=== PATIENT | female | born 1960 | race Two or more races ===

== ENCOUNTER 2022-04-25 00:52 | Emergency (ER) | payer MEDICAID ==
[~2022-04-25] VITALS: Ht 160 cm; Wt 70.5 kg
[2022-04-25 02:40] VITALS: BP 136/81
[2022-04-25] MEDS ORDERED: CYCL-837 PO (03:29)
[2022-04-25] MEDS ORDERED: IBUP800T27 PO (03:29)
== END 2022-04-25 03:37 | disposition home or self-care (01) ==
LOC: ER 00:55
DX: S16.1XXA Strain of muscle, fascia and tendon at neck level, initial encounter (principal); R51.9 Headache, unspecified; V43.52XA Car driver injured in collision with other type car in traffic accident, initial encounter; Y93.89 Activity, other specified; Y92.488 Other paved roadways as the place of occurrence of the external cause; Y99.8 Other external cause status
CPT/HCPCS: 70450; 72125

== ENCOUNTER 2023-07-27 01:44 | Inpatient (IN) | payer MEDICAID ==
[~2023-07-27] VITALS: Ht 160 cm; Wt 68.0 kg
[~2023-07-27 01:44] MED LIST: CYCL-837 PO; IBUP-1456 PO
[2023-07-27 02:25] LABS: Chloride 107 mmol/L (98-107); Potassium 3.7 mmol/L (3.5-5.1); Sodium 135 mmol/L (136-145)
[2023-07-27 02:26] LABS: Anion Gap 7 (5-15); Basophils # (auto) 0 10 ^3/uL (0-0.2); Basophils % (auto) 0.2 % (0.0-2.0); Carbon Dioxide 21 mmol/L (20-30); Eosinophils # (auto) 0 10 ^3/uL (0-0.8); Eosinophils % (auto) 0.3 % (0.0-7.0); Hematocrit 42.6 % (36.0-46.0); Hemoglobin 14.3 g/dL (12.2-16.2); Lymphocytes # (auto) 1.4 10 ^3/uL (0.4-5.4); Lymphocytes % (auto) 12.1 % (10.0-50.0); Mean Corpuscular Hemoglobin 28.8 pg (28.0-32.0); Mean Corpuscular Hgb Conc. 33.7 g/dL (32.0-36.0); Mean Corpuscular Volume 85.6 fL (80.0-100.0); Monocytes # (auto) 0.5 10 ^3/uL (0-1.3); Monocytes % (auto) 4.3 % (0.0-12.0); Neutrophils # (auto) 9.8 10 ^3/uL (1.6-8.6); Neutrophils % (auto) 83.1 % (37.0-80.0); Nucleated Red Blood Cells % 0.1 %; Red Blood Cells 4.97 10^6/uL (4.0-5.20); Red Cell Distribution Width 14.1 % (11.8-14.3); White Blood Cell 11.8 10^3/uL (4.4-10.8)
[2023-07-27 02:27] LABS: Calcium 8.7 mg/dL (8.5-10.1)
[2023-07-27 02:32] LABS: BUN/Creatinine Ratio 13.9 (10.0-20.0); Blood Urea Nitrogen 10 mg/dL (9-23); Glucose 269 mg/dL (74-106)
[2023-07-27] MEDS: SODIUM CHLORIDE 0.9% 1,000 ML IV ONE (04:10)
[2023-07-27 06:58] VITALS: BP 134/76; PULSE 78; RESP 20; TEMP 98.3; O2SAT 97
[2023-07-27] MEDS ORDERED: MORPHINE SULFATE INJ 2 MG/ml SYRG IV PRN (09:30)
[2023-07-27] MEDS ORDERED: ONDANSETRON HCL 4 MG/2 ML VIAL IV PRN (09:30)
[2023-07-27] MEDS ORDERED: DEXTROSE (50%) 50ML SYRG IV PRN (09:30)
[2023-07-27] MEDS ORDERED: DOCUSATE SOD 100 MG CAP PO PRN (09:30)
[2023-07-27] MEDS: SODIUM CHLORIDE 0.9% 1,000 ML IV SCH (09:45)
[2023-07-27] MEDS: InsuLIN REG 1unit/0.01ml Soln (100units/ml) SC SCH (11:30)
[2023-07-27] MEDS: ACCU-CHEK COMFORT CURVE STRIP VI SCH (11:30)
[2023-07-27] MEDS ORDERED: InsuLIN REG 1unit/0.01ml Soln (100units/ml) SC SCH (22:00)
== END 2023-07-27 16:35 | disposition left against medical advice (07) | DRG 48 ==
LOC: ER 01:44 → EDBD 01:44 → TELE 12:41
PROVIDERS: ADMIT Nurse Practitioner Family; ATTEND Nurse Practitioner Family
DX: G90.8 Other disorders of autonomic nervous system (principal); I95.9 Hypotension, unspecified; D72.829 Elevated white blood cell count, unspecified; E11.65 Type 2 diabetes mellitus with hyperglycemia; F17.210 Nicotine dependence, cigarettes, uncomplicated; F15.10 Other stimulant abuse, uncomplicated; Z53.29 Procedure and treatment not carried out because of patient's decision for other reasons; K21.9 Gastro-esophageal reflux disease without esophagitis; Z83.3 Family history of diabetes mellitus; Z79.4 Long term (current) use of insulin; Z90.49 Acquired absence of other specified parts of digestive tract; W18.39XA Other fall on same level, initial encounter; Y93.89 Activity, other specified; Y92.89 Other specified places as the place of occurrence of the external cause; Y99.8 Other external cause status
CPT/HCPCS: 36415; 70450; 71046; 80048; 82962; 83036; 84443; 84484; 85025; 93005; G0378

== ENCOUNTER 2024-06-01 12:06 | Inpatient (IN) | payer MEDICAID ==
[~2024-06-01] VITALS: Ht 160 cm; Wt 71.3 kg
--- NOTE | 2024-06-01 12:55 | ED.PDOC ---
GI ASSESSMENT HPI Comments 63Y F with PMHx DM and cholecystectomy presents to ED for chief complaint diarrhea x5days with vomiting x1day and weakness. Pt states she has never experienced this before. Pt denies chest pain, SOB, abd pain, fever, and urinary symptoms. Pt has an upcoming appt with GI Dr. Lundberg. No other symptoms reported. Pt is currently taking insulin for DM. Chief Complaint: Diarrhea Time Seen by MD: 12:40 Primary Care Provider: CARYL Kenny Notes: Nurses Notes, Medications, Allergies Allergies: Coded Allergies: NO KNOWN ALLERGIES (Unverified , 10/22/18) Home Meds Active Scripts Ibuprofen (Ibuprofen) 800 Mg Tab, 1 TAB PO TID PRN, #30 TAB 0 Refills Prov:DIGNA AGUIRRE 04/25/22 Cyclobenzaprine Hcl (Cyclobenzaprine Hcl) 5 Mg Tab, 1 TAB PO QPM PRN, #14 TAB 0 Refills Prov:DIGNA AGUIRRE 04/25/22 Information Source: Patient Mode of Arrival: Ambulatory Timing: Days Duration: Since onset Prehospital treatment: None Quality: None Vomitus: Watery Stool: Loose, Watery Severity: Moderate Recent: None Recent Hx of: None Pain Location: None Modifying Factors: Nothing Associated sign and symptoms: Nausea, Vomiting, Diarrhea, Other Past Medical History PAST MEDICAL HISTORY: DM, GERD Surgical History: Cholecystectomy DISH WASHER History: No Pertinent DISH WASHER History Family History Family History: Family hx of DM Social History Smoker: Cigarettes Alcohol: Denies ETOH Use Drugs: Methamphetamine Lives In: Home Constitutional: reports: weakness; denies: chills, diaphoresis, fatigue, fever, malaise, sweats, others EENTM: denies: blurred vision, double vision, ear bleeding, ear discharge, ear drainage, ear pain, ear ringing, eye pain, eye redness, hearing loss, mouth pain, mouth swelling, nasal discharge, nose bleeding, nose congestion, nose pain, photophobia, tearing, throat pain, throat swelling, voice changes, others Respiratory: denies: cough, hemoptysis, orthopnea, SOB at rest, shortness of breath, SOB with excertion, stridor, wheezing, others Cardiovascular: denies: chest pain, dizzy spells, diaphoresis, Dyspnea on exertion, edema, irregular heart beat, left arm pain, lightheadedness, palpitations, PND, syncope, others Gastrointestinal: reports: diarrhea, nausea, vomiting; denies: abdomen distended, abdominal pain, blood streaked bowels, constipated, dysphagia, difficulty swallowing, hematemesis, melena, poor appetite, poor fluid intake, rectal bleeding, rectal pain, others Genitourinary: denies: abnormal vagina bleeding, burning, dyspareunia, dysuria, flank pain, frequency, hematuria, incontinence, pain, , vagina discharge, urgency, others Neurological: denies: dizziness, fainting, headache, left sided numbness, left sided weakness, numbness, paresthesia, pre-existing deficit, right sided numbness, right sided weakness, seizure, speech problems, tingling, tremors, weakness, others Musculoskeletal: denies: back pain, gout, joint pain, joint swelling, muscle pain, muscle stiffness, neck pain, others Integumetry: denies: bruises, change in color, change in hair/nails, dryness, laceration, lesions, lumps, rash, wounds, others Allergic/Immunocompromised: denies: Difficulty Healing, Frequent Infections, Hives, Itching, others Hematologic/Lymphatic: denies: anemia, blood clots, easy bleeding, easy bruising, swollen glands, others Endocrine: denies: excessive hunger, excessive sweating, excessive thirst, excessive urination, flushing, intolerance to cold, intolerance to heat, unexplained weight gain, unexplained weight loss, others All Other Systems: Reviewed and Negative Physical Exam General Appearance: Mild Distress HEENT: Other (Pupils and face symmetric. Dry mucous membranes.) Neck: Full Range of Motion, Normal Inspection Respiratory: Lungs Clear, No Accessory Muscle Use, No Respiratory Distress, Normal Breath Sounds Cardiovascular: No Edema, No JVD, Regular Rate/Rhythm Breast Exam: Deferred Gastrointestinal: Diffuse, Soft, Tenderness Genitalia: Deferred Pelvic: Deferred Rectal: Deferred Extremities: Normal inspection, Normal range of motion, Non-tender, No pedal edema Neurologic: Alert (Oriented x4), Normal Affect, Normal Mood, Other (Ambulatory without difficulty. No gross focal deficit.) Cerebellar Function: NOT DONE Reflexes: NOT DONE Skin: Dry, Pallor, Warm Lymphatic: NOT DONE Was a procedure done? Was a procedure done?: No GI differential Dx Differential Diagnosis: Diverticular disease, Gastritis/PUD, Gastroenteritis, Inflammatory BD, Ischemic Bowel, Pancreatitis, PID, UTI, Dehydration, Electrolyte Imbalance, Food Poisoning, Bacterial, Viral, Hypovolemia X-Ray, Labs, Meds, VS Vital Signs Date Time Temp Pulse Resp B/P (MAP) Pulse Ox O2 Delivery O2 Flow Rate FiO2 06/01/24 12:32 97.1 107 18 99/59 (72) 100 Lab Test 06/01/24 13:22 06/01/24 12:24 Range/Units White Blood Count 6.0 4.4-10.8 10^3/uL Red Blood Count 5.46 H 4.0-5.20 10^6/uL Hemoglobin 16.1 12.2-16.2 g/dL Hematocrit 45.3 36.0-46.0 % Mean Corpuscular Volume 83.0 80.0-100.0 fL Mean Corpuscular Hemoglobin 29.5 28.0-32.0 pg Mean Corpuscular Hemoglobin Concent 35.5 32.0-36.0 g/dL Red Cell Distribution Width 14.0 11.8-14.3 % Platelet Count 206 140-450 10^3/uL Mean Platelet Volume 8.1 6.9-10.8 fL Neutrophils (%) (Auto) 68.8 37.0-80.0 % Lymphocytes (%) (Auto) 21.7 10.0-50.0 % Monocytes (%) (Auto) 9.1 0.0-12.0 % Eosinophils (%) (Auto) 0.1 0.0-7.0 % Basophils (%) (Auto) 0.3 0.0-2.0 % Neutrophils # (Auto) 4.1 1.6-8.6 10 ^3/uL Lymphocytes # (Auto) 1.3 0.4-5.4 10 ^3/uL Monocytes # (Auto) 0.5 0-1.3 10 ^3/uL Eosinophils # (Auto) 0 0-0.8 10 ^3/uL Basophils # (Auto) 0 0-0.2 10 ^3/uL Nucleated Red Blood Cells 0.2 % Sodium Level 133 L 136-145 mmol/L Potassium Level 3.9 3.5-5.1 mmol/L Chloride Level 101 98-107 mmol/L Carbon Dioxide Level 22 20-31 mmol/L Anion Gap 10 5-15 Blood Urea Nitrogen 23 9-23 mg/dL Creatinine 1.03 H 0.550-1.02 mg/dL Glomerular Filtration Rate Calc 61 >90 mL/min BUN/Creatinine Ratio 22.3 H 10.0-20.0 Serum Glucose 270 H 74-106 mg/dL Lactic Acid Level 1.5 0.4-2.0 mmol/L Calcium Level 8.9 8.7-10.4 mg/dL Total Bilirubin 0.4 0.2-1.0 mg/dL Aspartate Amino Transferase (AST) 49 H 13-40 U/L Alanine Aminotransferase (ALT) 71 H 7-40 U/L Alkaline Phosphatase 189 H 46-116 U/L Total Protein 6.8 5.7-8.2 g/dL Albumin 4.1 3.2-4.8 g/dL POC Glucose 259 H 70-106 mg/dl Current Medications Medications (Trade) Dose Ordered Sig/Gabby Route Start Time Stop Time Status Last Admin Sodium Chloride 1,000 ml @ 1,000 mls/hr Q1H ONCE IV 06/01/24 13:00 06/01/24 13:59 DC 06/01/24 13:08 Ondansetron HCl (Zofran) 4 mg ONCE ONCE IV 06/01/24 13:00 06/01/24 13:01 DC 06/01/24 13:51 Loperamide HCl (Imodium Capsule) 4 mg ONCE ONCE PO 06/01/24 13:00 06/01/24 13:01 DC 06/01/24 13:08 ORDERING PHYSICIAN: NEO WAGONER MD PROCEDURE(s): ABPL - CT AB PEL WO CON-NO ORAL OR IV REASON: diarrhea ORDER NUMBER(s): [id number], ACCESSION NUMBER(s): [id number] EXAM: CT Abdomen and Pelvis Without Intravenous Contrast CLINICAL INDICATION: diarrhea TECHNIQUE: Axial computed tomography images of the abdomen and pelvis without intravenous contrast. This CT exam was performed using one or more of the following dose reduction techniques: automated exposure control, adjustment of the mA and/or kV according to patient size, and/or use of iterative reconstruction technique. CONTRAST: RADIATION DOSE: CTDIvol = 9.72 mGy, DLP = 486.33 mGy-cm COMPARISON: CT ABD PELVIS WO CONTRAST on DOS: 10/22/18 FINDINGS: LUNG BASES: Unremarkable. No mass. No consolidation. MEDIASTINUM: Small esophageal hiatal hernia. ABDOMEN: LIVER: Hepatomegaly with fatty infiltration. GALLBLADDER AND BILE DUCTS: Gallbladder is surgically absent. No ductal dilation. PANCREAS: Unremarkable. No ductal dilation. SPLEEN: Unremarkable. No splenomegaly. ADRENALS: Unremarkable. No mass. KIDNEYS AND URETERS: Punctate left nephrolithiasis without hydronephrosis. STOMACH AND BOWEL: Multiple distended small bowels with air-fluid levels measuring up to 3.9 cm. This could be enteritis. No bowel obstruction pneumoperitoneum. Clinical correlation is recommended. PELVIS: APPENDIX: No findings to suggest acute appendicitis. BLADDER: Unremarkable. No stones. REPRODUCTIVE: Unremarkable as visualized. ABDOMEN and PELVIS: INTRAPERITONEAL SPACE: See above. BONES/JOINTS: No acute fracture. No dislocation. SOFT TISSUES: Unremarkable. VASCULATURE: Unremarkable. No abdominal aortic aneurysm. LYMPH NODES: Unremarkable. No enlarged lymph nodes. OTHER FINDINGS: . . IMPRESSION: 1. Multiple distended small bowels with air-fluid levels measuring up to 3.9 cm. This could be enteritis. No bowel obstruction pneumoperitoneum. Clinical correlation is recommended. 2. Small esophageal hiatal hernia. 3. Hepatomegaly with fatty infiltration. 4. Punctate left nephrolithiasis without hydronephrosis. X-Ray, Labs, Meds, VS Comment 63-year-old female with a history of diabetes complaining of diarrhea for the last 5 days Vitals remarkable for temperature 97.1, heart rate 107, BP 99/59 Exam remarkable for mild diffuse abdominal tenderness to palpation Rhythm strip independently interpreted by me: Sinus tach, rate 107, no ectopy. CT abdomen and pelvis IMPRESSION: 1. Multiple distended small bowels with air-fluid levels measuring up to 3.9 cm. This could be enteritis. No bowel obstruction pneumoperitoneum. Clinical correlation is recommended. 2. Small esophageal hiatal hernia. 3. Hepatomegaly with fatty infiltration. 4. Punctate left nephrolithiasis without hydronephrosis. CBC unremarkable, CMP remarkable for creatinine 1.03, sodium 133, mild hyperglycemia, mildly elevated LFTs, lipase normal, lactate normal, UA pending Patient treated with the following in the ED: 1 L 0.9 normal saline IV bolus, Zofran 4 mg IV, Imodium 2 mg p.o., Rocephin 1 g IV, Flagyl 500 mg IV On re-evaluation, patient states nausea has improved. Repeat abdominal exam is benign. Plan is to admit the patient for IV hydration and antibiotics, possible GI evaluation. Time of 1ST Reevaluation: 13:10 Reevaluation 1ST: Unchanged Patient Education/Counseling: Diagnosis, Treatment Family Education/Counseling: No Family Present Departure 1 Departure Time of Disposition: 14:26 Impression: Primary Impression: Enteritis Additional Impressions: Electrolyte imbalance Dehydration Vomiting and diarrhea Disposition: ADMITTED INPATIENT Admit to: Med Surg Condition: Guarded Critical Care Note Critical Care Time?: No Stability Stability form required: No Heart Score Heart Score: Heart Score Response (Comments) Value History N/A 0 EKG N/A 0 Age N/A 0 Risk Factors N/A 0 Troponin N/A 0 Total 0 I personally scribed for NEO WAGONER MD ([email or web address] on 06/01/24 at 12:55. Electronically submitted by [employer] ([email or web address]). I personally scribed for NEO WAGONER MD ([email or web address]) on 06/01/24 at 13:54. Electronically submitted by [employer] ([employer]). NEO WAGONER MD Jun 01, 2024 12:55
[2024-06-01] MEDS ORDERED: levETIRAcetam 1000 mg/100ml 100 ML IV ONE (13:00)
[2024-06-01] MEDS ORDERED: SODIUM CHLORIDE 0.9% 1,000 ML IV ONE (13:00)
[2024-06-01] MEDS: SODIUM CHLORIDE 0.9% 1,000 ML IV ONE (13:08)
[2024-06-01] MEDS: LOPERAMIDE HCL 2 MG CAP/TAB PO ONE (13:08)
--- NOTE | 2024-06-01 13:42 | DVH ---
EXAM: CT Abdomen and Pelvis Without Intravenous Contrast CLINICAL INDICATION: diarrhea TECHNIQUE: Axial computed tomography images of the abdomen and pelvis without intravenous contrast. This CT exam was performed using one or more of the following dose reduction techniques: automated exposure control, adjustment of the mA and/or kV according to patient size, and/or use of iterative r econstruction technique. CONTRAST: RADIATION DOSE: CTDIvol = 9.72 mGy, DLP = 486.33 mGy-cm COMPARISON: CT ABD PELVIS WO CONTRAST on DOS: 10/22/18 FINDINGS: LUNG BASES: Unremarkable. No mass. No consolidation. MEDIASTINUM: Small esophageal hiatal hernia. ABDOMEN: LIVER: Hepatomegaly with fatty infiltration. GALLBLADDER AND BILE DUCTS: Gallbladder is surgically absent. No ductal dilation. PANCREAS: Unremarkable. No ductal dilation. SPLEEN: Unremarkable. No splenomegaly. ADRENALS: Unremarkable. No mass. KIDNEYS AND URETERS: Punctate left nephrolithiasis without hydronephrosis. STOMACH AND BOWEL: Multiple distended small bowels with air-fluid levels measuring up to 3.9 cm. Th is could be enteritis. No bowel obstruction pneumoperitoneum. Clinical correlation is recommended. PELVIS: APPENDIX: No findings to suggest acute appendicitis. BLADDER: Unremarkable. No stones. REPRODUCTIVE: Unremarkable as visualized. ABDOMEN and PELVIS: INTRAPERITONEAL SPACE: See above. BONES/JOINTS: No acute fracture. No dislocation. SOFT TISSUES: Unremarkable. VASCULATURE: Unremarkable. No abdominal aortic aneurysm. LYMPH NODES: Unremarkable. No enlarged lymph nodes. OTHER FINDINGS: . . IMPRESSION: 1. Multiple distended small bowels with air-fluid levels measuring up to 3.9 cm. This could be enter itis. No bowel obstruction pneumoperitoneum. Clinical correlation is recommended. 2. Small esophageal hiatal hernia. 3. Hepatomegaly with fatty infiltration. 4. Punctate left nephrolithiasis without hydronephrosis.
[2024-06-01 13:51] LABS: Basophils # (auto) 0 10 ^3/uL (0-0.2); Basophils % (auto) 0.3 % (0.0-2.0); Eosinophils # (auto) 0 10 ^3/uL (0-0.8); Eosinophils % (auto) 0.1 % (0.0-7.0); Hematocrit 45.3 % (36.0-46.0); Hemoglobin 16.1 g/dL (12.2-16.2); Lymphocytes # (auto) 1.3 10 ^3/uL (0.4-5.4); Lymphocytes % (auto) 21.7 % (10.0-50.0); Mean Corpuscular Hemoglobin 29.5 pg (28.0-32.0); Mean Corpuscular Hgb Conc. 35.5 g/dL (32.0-36.0); Monocytes # (auto) 0.5 10 ^3/uL (0-1.3); Monocytes % (auto) 9.1 % (0.0-12.0); Neutrophils # (auto) 4.1 10 ^3/uL (1.6-8.6); Neutrophils % (auto) 68.8 % (37.0-80.0); Nucleated Red Blood Cells % 0.2 %; Platelet Count (auto) 206 10^3/uL (140-450); Red Blood Cells 5.46 10^6/uL (4.0-5.20)
[2024-06-01] MEDS: ONDANSETRON HCL 4 MG/2 ML VIAL IV ONE (13:51)
[2024-06-01 13:56] LABS: Albumin 4.1 g/dL (3.2-4.8); Anion Gap 10 (5-15); BUN/Creatinine Ratio 22.3 (10.0-20.0); Bilirubin, Total 0.4 mg/dL (0.2-1.0); Calcium 8.9 mg/dL (8.7-10.4); Carbon Dioxide 22 mmol/L (20-31); Chloride 101 mmol/L (98-107); Potassium 3.9 mmol/L (3.5-5.1); Total Protein 6.8 g/dL (5.7-8.2)
[2024-06-01 14:00] LABS: Alanine Aminotransferase 71 U/L (7-40); Alkaline Phosphatase 189 U/L (46-116); Aspartate Aminotransferase 49 U/L (13-40); Blood Urea Nitrogen 23 mg/dL (9-23); Glucose 270 mg/dL (74-106); Sodium 133 mmol/L (136-145)
[2024-06-01] MEDS ORDERED: HYDROcodone-ACET 5/325MG TAB PO PRN (14:45)
[2024-06-01] MEDS ORDERED: DEXTROSE (50%) 50ML SYRG IV PRN (14:45)
[2024-06-01] MEDS ORDERED: ONDANSETRON HCL 4 MG/2 ML VIAL IV PRN (14:45)
[2024-06-01] MEDS ORDERED: ACETAMINOPHEN 325 MG TAB PO PRN (14:45)
[2024-06-01] MEDS ORDERED: LISI2.5T47 (14:46)
[2024-06-01] MEDS ORDERED: OMEP-448 PO (14:46)
--- NOTE | 2024-06-01 14:59 | DVHHP2 ---
History of Present Illness Reason for Visit: Diarrhea History of Present Illness Reyna العلي is a 63-year-old female with past medical history of diabetes, GERD, and cholecystectomy who presents to the ED for diarrhea x5 days and vomiting for 1 day. Patient reports that she has been having brownish now yellowish BM. Her emesis has been food contents. Patient reports that she does smoke less than half a pack of cigarettes in 3 days and uses meth. Patient denies any chest pain, shortness of breath, fever, chills, lightheadedness, weakness, dizziness, abdominal pain, and wheezing. GI: GERD Endocrine: Diabetes Past Surgical History: Cholecystectomy Family History: DM, Other (Mom with diabetes) Smoke: <1 pack per day ALCOHOL: none Drugs: Other (Methamphetamine) Lives: with Family Domestic Violence: Neg Review of Systems Gastrointestinal: Vomiting, Diarrhea Allergies: Coded Allergies: NO KNOWN ALLERGIES (Unverified , 10/22/18) Exam Vital Signs Vital Signs Date Time Temp Pulse Resp B/P (MAP) Pulse Ox O2 Delivery O2 Flow Rate FiO2 06/01/24 12:32 97.1 107 18 99/59 (72) 100 General Appearance: Alert, Oriented X3, Cooperative, No acute distress HEENT: Atraumatic, PERRLA, EOMI, Mucous membr. moist/pink Respiratory: Normal air movement Cardiovascular: Normal S1, Normal S2, No murmurs Abdominal: Soft, No hepatospenomegaly, No masses Extremities: No clubbing, No cyanosis, No edema, Normal pulses, No tenderness/swelling Skin: No rashes, No breakdown, No significant lesion Neuro: Normal gait, Normal speech, Strength at 5/5 X4 ext, Normal tone, Sensation intact Psych/Mental Status: Mental status NL, Mood NL Labs/Xrays Labs Test 06/01/24 13:22 06/01/24 12:24 Range/Units White Blood Count 6.0 4.4-10.8 10^3/uL Red Blood Count 5.46 H 4.0-5.20 10^6/uL Hemoglobin 16.1 12.2-16.2 g/dL Hematocrit 45.3 36.0-46.0 % Mean Corpuscular Volume 83.0 80.0-100.0 fL Mean Corpuscular Hemoglobin 29.5 28.0-32.0 pg Mean Corpuscular Hemoglobin Concent 35.5 32.0-36.0 g/dL Red Cell Distribution Width 14.0 11.8-14.3 % Platelet Count 206 140-450 10^3/uL Mean Platelet Volume 8.1 6.9-10.8 fL Neutrophils (%) (Auto) 68.8 37.0-80.0 % Lymphocytes (%) (Auto) 21.7 10.0-50.0 % Monocytes (%) (Auto) 9.1 0.0-12.0 % Eosinophils (%) (Auto) 0.1 0.0-7.0 % Basophils (%) (Auto) 0.3 0.0-2.0 % Neutrophils # (Auto) 4.1 1.6-8.6 10 ^3/uL Lymphocytes # (Auto) 1.3 0.4-5.4 10 ^3/uL Monocytes # (Auto) 0.5 0-1.3 10 ^3/uL Eosinophils # (Auto) 0 0-0.8 10 ^3/uL Basophils # (Auto) 0 0-0.2 10 ^3/uL Nucleated Red Blood Cells 0.2 % Sodium Level 133 L 136-145 mmol/L Potassium Level 3.9 3.5-5.1 mmol/L Chloride Level 101 98-107 mmol/L Carbon Dioxide Level 22 20-31 mmol/L Anion Gap 10 5-15 Blood Urea Nitrogen 23 9-23 mg/dL Creatinine 1.03 H 0.550-1.02 mg/dL Glomerular Filtration Rate Calc 61 >90 mL/min BUN/Creatinine Ratio 22.3 H 10.0-20.0 Serum Glucose 270 H 74-106 mg/dL Lactic Acid Level 1.5 0.4-2.0 mmol/L Calcium Level 8.9 8.7-10.4 mg/dL Total Bilirubin 0.4 0.2-1.0 mg/dL Aspartate Amino Transferase (AST) 49 H 13-40 U/L Alanine Aminotransferase (ALT) 71 H 7-40 U/L Alkaline Phosphatase 189 H 46-116 U/L Total Protein 6.8 5.7-8.2 g/dL Albumin 4.1 3.2-4.8 g/dL POC Glucose 259 H 70-106 mg/dl EXAM: CT Abdomen and Pelvis Without Intravenous Contrast CLINICAL INDICATION: diarrhea TECHNIQUE: Axial computed tomography images of the abdomen and pelvis without intravenous contrast. This CT exam was performed using one or more of the following dose reduction techniques: automated exposure control, adjustment of the mA and/or kV according to patient size, and/or use of iterative reconstruction technique. CONTRAST: RADIATION DOSE: CTDIvol = 9.72 mGy, DLP = 486.33 mGy-cm COMPARISON: CT ABD PELVIS WO CONTRAST on DOS: 10/22/18 FINDINGS: LUNG BASES: Unremarkable. No mass. No consolidation. MEDIASTINUM: Small esophageal hiatal hernia. ABDOMEN: LIVER: Hepatomegaly with fatty infiltration. GALLBLADDER AND BILE DUCTS: Gallbladder is surgically absent. No ductal d ilation. PANCREAS: Unremarkable. No ductal dilation. SPLEEN: Unremarkable. No splenomegaly. ADRENALS: Unremarkable. No mass. KIDNEYS AND URETERS: Punctate left nephrolithiasis without hydronephrosis. STOMACH AND BOWEL: Multiple distended small bowels with air-fluid levels measuring up to 3.9 cm. This could be enteritis. No bowel obstruction pneumoperitoneum. Clinical correlation is recommended. PELVIS: APPENDIX: No findings to suggest acute appendicitis. BLADDER: Unremarkable. No stones. REPRODUCTIVE: Unremarkable as visualized. ABDOMEN and PELVIS: INTRAPERITONEAL SPACE: See above. BONES/JOINTS: No acute fracture. No dislocation. SOFT TISSUES: Unremarkable. VASCULATURE: Unremarkable. No abdominal aortic aneurysm. LYMPH NODES: Unremarkable. No enlarged lymph nodes. OTHER FINDINGS: . . IMPRESSION: 1. Multiple distended small bowels with air-fluid levels measuring up to 3.9 cm. This could be enteritis. No bowel obstruction pneumoperitoneum. Clinical correlation is recommended. 2. Small esophageal hiatal hernia. 3. Hepatomegaly with fatty infiltration. 4. Punctate left nephrolithiasis without hydronephrosis. Assessment/Plan Assessment/Plan Assessment Intractable diarrhea with vomiting likely due to enteritis Tobacco use Meth abuse Tachycardia Hyponatremia CORDELIA Diabetes type 2 uncontrolled Hepatomegaly with fatty infiltration Punctate left nephrolithiasis without hydronephrosis History of GERD History of cholecystectomy Plan Admit to med surge IV fluids Hemoglobin A1c ISS and Accu-Cheks IV antibiotics-Flagyl + ceftriaxone Famotidine given in ED Antiemetics Lactic level Blood cultures CT abdomen and pelvis Continue home medications Counseled patient on substance abuse Diet Plan discussed with: Patient My Orders Orders - PAMELA MCCALL Procedure Category Date Status Time Ceftriaxone Ivpb PHA 06/02/24 Transmitted Rocephin 09:00 Metronidazole Ivpb PHA 06/01/24 Transmitted Flagyl 22:00 Admit ADMIT 06/01/24 Transmitted 14:33 Allergies DEMETRIO 06/01/24 In Process 14:33 Code Status CODE 06/01/24 Transmitted 14:33 Hydrocodone-Acet PHA 06/01/24 Transmitted 5/325mg Tab ([place] 14:45 Ondansetron Hcl PHA 06/01/24 Transmitted (Zofran) 14:45 Complete Blood Count LAB 06/02/24 Verified 04:00 Comprehensive LAB 06/02/24 Verified Metabolic Panel 04:00 Cardiac DIET 06/01/24 Transmitted Diet-2gna,Lofat,Lochol Dinner Acetaminophen Tablet PHA 06/01/24 Transmitted (Tylenol Tablet) 14:45 Glucose Blood PHA 06/01/24 Transmitted (Accu-Chek Comfort 17:00 Mild Sliding Scale PHA 06/01/24 Transmitted 17:00 Dextrose 50% Syringe PHA 06/01/24 Transmitted 14:45 NS PHA 06/01/24 Transmitted 14:45 Hemoglobin A1c LAB 06/01/24 Transmitted 14:33 Date of Service: Jun 01, 2024 Billing Provider: PAMELA MCCALL Common Visit Codes: [id number] INP/OBS CARE (HIGH) PAMELA MCCALL Jun 01, 2024 14:59
[2024-06-01] MEDS: cefTRIAXone 1GM/50ML D5W 50 ML IV ONE (15:01)
[2024-06-01 15:40] VITALS: BP 105/68; PULSE 95; RESP 18; TEMP 98.8; O2SAT 100
[2024-06-01 15:46] VITALS: BP 105/72; PULSE 87; RESP 18; TEMP 98.7; O2SAT 98
[2024-06-01] MEDS: SODIUM CHLORIDE 0.9% 1,000 ML IV SCH (16:25)
[2024-06-01] MEDS: metroNIDAZOLE 500MG/100ML 100 ML IV ONE (16:25)
[2024-06-01] MEDS: ACCU-CHEK COMFORT CURVE STRIP VI SCH (17:42)
[2024-06-01] MEDS: InsuLIN REG 1unit/0.01ml Soln (100units/ml) SC SCH (17:42)
[2024-06-01 18:00] VITALS: BP 101/58; PULSE 91; RESP 16; TEMP 98.6; O2SAT 99
[2024-06-01 18:12] VITALS: BP 99/47; PULSE 93; RESP 18; TEMP 98; O2SAT 99
[2024-06-01 20:00] VITALS: PULSE 93; RESP 18; O2SAT 99
[2024-06-01 21:00] VITALS: BP 93/55; PULSE 79; RESP 18; TEMP 98; O2SAT 97
[2024-06-01] MEDS: metroNIDAZOLE 500MG/100ML 100 ML IV SCH (21:06)
[2024-06-01 22:05] LABS: Urine Bacteria FEW /hpf (None Seen); Urine Blood 1+ /uL (Negative); Urine Clarity Ex.Turbid (Clear); Urine Color Yellow (Yellow); Urine Hyaline Cast MANY /lpf (0 - 2); Urine Mucus FEW (None Seen); Urine Protein, UAD 1+ (Negative); Urine Specific Gravity 1.026 (1.001-1.035); Urine Squamous Epithelial Cell FEW /hpf (<5); Urine Urobilinogen Normal (Negative); Urine WBC 1199 /HPF (0-5); Urine WBC Clumps PRESENT /hpf (None Seen)
[2024-06-02 01:00] VITALS: BP 125/53; PULSE 87; RESP 18; TEMP 97.4; O2SAT 98
[2024-06-02 05:00] VITALS: BP 104/59; PULSE 72; RESP 18; TEMP 97.6; O2SAT 99
[2024-06-02 09:10] VITALS: BP 106/64; PULSE 75; RESP 17; TEMP 97.6; O2SAT 99
[2024-06-02] MEDS: cefTRIAXone 1GM/50ML D5W 50 ML IV SCH (10:39)
[2024-06-02 11:11] LABS: Basophils # (auto) 0 10 ^3/uL (0-0.2); Basophils % (auto) 0.3 % (0.0-2.0); Eosinophils # (auto) 0 10 ^3/uL (0-0.8); Eosinophils % (auto) 0.6 % (0.0-7.0); Hematocrit 39.8 % (36.0-46.0); Hemoglobin 13.7 g/dL (12.2-16.2); Lymphocytes # (auto) 1.7 10 ^3/uL (0.4-5.4); Lymphocytes % (auto) 38.2 % (10.0-50.0); Mean Corpuscular Hemoglobin 28.7 pg (28.0-32.0); Mean Corpuscular Hgb Conc. 34.4 g/dL (32.0-36.0); Mean Corpuscular Volume 83.6 fL (80.0-100.0); Monocytes # (auto) 0.5 10 ^3/uL (0-1.3); Monocytes % (auto) 10.8 % (0.0-12.0); Neutrophils # (auto) 2.3 10 ^3/uL (1.6-8.6); Neutrophils % (auto) 50.1 % (37.0-80.0); Nucleated Red Blood Cells % 0.1 %; Platelet Count (auto) 172 10^3/uL (140-450); Red Blood Cells 4.76 10^6/uL (4.0-5.20); Red Cell Distribution Width 13.9 % (11.8-14.3); White Blood Cell 4.6 10^3/uL (4.4-10.8)
[2024-06-02 11:19] LABS: Albumin 3.5 g/dL (3.2-4.8); Anion Gap 10 (5-15); Aspartate Aminotransferase 23 U/L (13-40); BUN/Creatinine Ratio 17.7 (10.0-20.0); Blood Urea Nitrogen 11 mg/dL (9-23); Carbon Dioxide 23 mmol/L (20-31); Sodium 140 mmol/L (136-145); Total Protein 5.8 g/dL (5.7-8.2)
[2024-06-02 11:27] LABS: Alanine Aminotransferase 40 U/L (7-40); Alkaline Phosphatase 130 U/L (46-116); Bilirubin, Total 0.2 mg/dL (0.2-1.0); Calcium 8.2 mg/dL (8.7-10.4); Chloride 107 mmol/L (98-107); Glucose 147 mg/dL (74-106); Potassium 3.3 mmol/L (3.5-5.1)
[2024-06-02] MEDS ORDERED: METF-370 PO (12:22)
[2024-06-02] MEDS ORDERED: METR-344 PO (12:22)
[2024-06-02] MEDS ORDERED: LEVO500T91 PO (12:23)
--- NOTE | 2024-06-02 12:24 | DVHDS2 ---
Discharge Summary Date of Admission Jun 01, 2024 at 14:33 Date of Discharge: Jun 02, 2024 Admitting Diagnosis Intractable diarrhea with vomiting likely due to enteritis Tobacco use Meth abuse Tachycardia Hyponatremia CORDELIA Diabetes type 2 uncontrolled Hepatomegaly with fatty infiltration Punctate left nephrolithiasis without hydronephrosis History of GERD History of cholecystectomy Labs/Diagnostic Data: Laboratory Results Test 06/02/24 12:02 06/02/24 10:14 06/01/24 13:47 06/01/24 13:22 POC Glucose 173 mg/dl (70-106) White Blood Count 4.6 10^3/uL (4.4-10.8) Red Blood Count 4.76 10^6/uL (4.0-5.20) Hemoglobin 13.7 g/dL (12.2-16.2) Hematocrit 39.8 % (36.0-46.0) Mean Corpuscular Volume 83.6 fL (80.0-100.0) Mean Corpuscular Hemoglobin 28.7 pg (28.0-32.0) Mean Corpuscular Hemoglobin Concent 34.4 g/dL (32.0-36.0) Red Cell Distribution Width 13.9 % (11.8-14.3) Platelet Count 172 10^3/uL (140-450) Mean Platelet Volume 8.2 fL (6.9-10.8) Neutrophils (%) (Auto) 50.1 % (37.0-80.0) Lymphocytes (%) (Auto) 38.2 % (10.0-50.0) Monocytes (%) (Auto) 10.8 % (0.0-12.0) Eosinophils (%) (Auto) 0.6 % (0.0-7.0) Basophils (%) (Auto) 0.3 % (0.0-2.0) Neutrophils # (Auto) 2.3 10 ^3/uL (1.6-8.6) Lymphocytes # (Auto) 1.7 10 ^3/uL (0.4-5.4) Monocytes # (Auto) 0.5 10 ^3/uL (0-1.3) Eosinophils # (Auto) 0 10 ^3/uL (0-0.8) Basophils # (Auto) 0 10 ^3/uL (0-0.2) Nucleated Red Blood Cells 0.1 % Sodium Level 140 mmol/L (136-145) Potassium Level 3.3 mmol/L (3.5-5.1) Chloride Level 107 mmol/L (98-107) Carbon Dioxide Level 23 mmol/L (20-31) Anion Gap 10 (5-15) Blood Urea Nitrogen 11 mg/dL (9-23) Creatinine 0.62 mg/dL (0.550-1.02) Glomerular Filtration Rate Calc 100 mL/min (>90) BUN/Creatinine Ratio 17.7 (10.0-20.0) Serum Glucose 147 mg/dL (74-106) Calcium Level 8.2 mg/dL (8.7-10.4) Total Bilirubin 0.2 mg/dL (0.2-1.0) Aspartate Amino Transferase (AST) 23 U/L (13-40) Alanine Aminotransferase (ALT) 40 U/L (7-40) Alkaline Phosphatase 130 U/L (46-116) Total Protein 5.8 g/dL (5.7-8.2) Albumin 3.5 g/dL (3.2-4.8) Urine Color Yellow (Yellow) Urine Clarity Ex.turbid (Clear) Urine pH 6.0 (5.0-9.0) Urine Specific [place] 1.026 (1.001-1.035) Urine Protein 1+ (Negative) Urine Ketones Negative (Negative) Urine Blood 1+ /uL (Negative) Urine Nitrite 2+ (Negative) Urine Bilirubin Negative (Negative) Urine Urobilinogen Normal mg/dL (Negative) Urine Leukocyte Esterase 3+ /uL (Negative) Urine RBC 12 /hpf (0 - 4) Urine WBC Clumps Present /hpf (None Seen) Urine Microscopic WBC 1199 /HPF (0-5) Urine Squamous Epithelial Cells Few /hpf (<5) Urine Bacteria Few /hpf (None Seen) Urine Hyaline Casts Many /lpf (0 - 2) Urine Mucus Few (None Seen) Urine Glucose 1+ mg/dL (Normal) Hemoglobin A1c 11.0 % A1C (<5.7) Lactic Acid Level 1.5 mmol/L (0.4-2.0) Other Laboratory Tests 06/02/24 10:14 Brief Hx & Hospital Course: This is a 63 years old female with past medical history of diabetes, GERD, cholecystectomy came to emergency department because five days diarrhea vomiting. Patient had some brown nourished yellowish watery bowel movement. No blood in stool. No melena. Emesis just had food contents nothing else. The patient admits she smokes about half pack of cigarette per day for three days and had been using methamphetamine for couple days. The patient was admitted. CT scan of abdomen pelvis showed enteritis. The patient was put on Zofran, IV fluid, IV antibiotic with Flagyl and Rocephin. Patient subsequently doing much better. No nausea and vomiting. She tolerated diet today. I advised her to stop smoking and also stop using methamphetamine. The patient tolerated clear liquid diet and soft diet so I am discharge her home. Advised her to follow up with primary care physician 1-2 weeks. Follow up with GI specialist as outpatient if she continuing to have nausea and vomiting. Activity as tolerated. Diet per home diet. Physical exam: HEENT: Normocephalic atraumatic pupils equal react to light and accommodation. Extraocular muscles intact, conjunctiva pink, oropharynx moist, no thrush, no exudate. Lymphatic: No lymphadenopathy Cardiovascular exam: S1, S2 was heard. No murmurs, rubs, gallops Lung: Clear on auscultation bilaterally, no wheeze, rale, rhonchi. GI: Abdominal soft, nondistended, nontenderness, positive bowel sounds. Extremity: No crepitus, cyanosis, edema. Pedal pulses present bilateral. Full range of motion. Skin: Normal turgor, no rash. Psych: Alert, oriented x3. Neurology: No focal deficits, cranial nerve II to XII grossly intact. This medical document was created using an electronic medical record system with [employer] direct computerized dictation system. Although this document has been carefully reviewed, there may still be some phonetic and typographical errors. These areas are purely typographical due to imperfections of the software programs, and do not reflect any compromise in the patient's medical care. Condition at Discharge: Stable Final Diagnosis/Problems List Intractable diarrhea with vomiting likely due to enteritis Tobacco use Meth abuse Tachycardia Hyponatremia CORDELIA Diabetes type 2 uncontrolled Hepatomegaly with fatty infiltration Punctate left nephrolithiasis without hydronephrosis History of GERD History of cholecystectomy Discharge Disposition: Home Discharge Instruct/Medications Diet: Cardiac 2g Na,low cholest Activity: No Restrictions, As Tolerated Follow Up/Referral: pcp 1-2 weeks Medications: Resume home meds Flagyl 500mg tid x 7 days Levaquin 500mg daily Discharge Statement: "Patient was advised to return to the ER or call 911 if any headaches, dizziness, shortness of breath, chest pain, abdominal pain, bleeding, fevers, or worsening of medical condition. Patient was counseled about treatment plan, medications, possible side effects, patientverbalized understanding. All questions were answered to the best of my ability. This discharge took greater then 30 minutes in planning, reviewing documentation, counseling the patient, and discussing with other team members." ASSESSMENT ASSESSMENT Assessment colitis Date of Service: Jun 02, 2024 Billing Provider: ROANL ZAVALA MD Common Visit Codes: 90678-RHA/OBS DISCH DAY >30min RONAL ZAVALA MD Jun 02, 2024 12:24
[2024-06-02 13:00] VITALS: BP 102/59; PULSE 77; RESP 18; TEMP 98; O2SAT 98
== END 2024-06-02 16:42 | disposition home or self-care (01) | DRG 248 ==
LOC: ER 12:06 → OVERFLOW 14:33 → EAST 18:06
DX: A04.9 Bacterial intestinal infection, unspecified (principal); N17.0 Acute kidney failure with tubular necrosis; K76.0 Fatty (change of) liver, not elsewhere classified; E87.1 Hypo-osmolality and hyponatremia; K21.9 Gastro-esophageal reflux disease without esophagitis; N20.0 Calculus of kidney; F15.10 Other stimulant abuse, uncomplicated; E11.9 Type 2 diabetes mellitus without complications; F17.210 Nicotine dependence, cigarettes, uncomplicated; E86.0 Dehydration; R00.0 Tachycardia, unspecified; Z90.49 Acquired absence of other specified parts of digestive tract; Z79.1 Long term (current) use of non-steroidal anti-inflammatories (NSAID); Z79.899 Other long term (current) drug therapy; Z83.3 Family history of diabetes mellitus; Z79.4 Long term (current) use of insulin
CPT/HCPCS: 36415; 74176; 80053; 81001; 82962; 83036; 83605; 85025; 87040; 96361; 96365; 96367; 96375; G0378; J1815; J2405; J3490